=== PATIENT | female | born 1950 | race Caucasian/White ===

== ENCOUNTER 2025-08-10 11:15 | Outpatient (RCR) | payer MEDICARE, BC, SELFPAY | END 2025-09-25 13:11 | disposition home or self-care (01) | PROVIDERS: PCP Family Medicine; Visit Provider Family Medicine | DX: M25.511 Pain in right shoulder (principal); G89.29 Other chronic pain; M25.811 Other specified joint disorders, right shoulder; Z51.89 Encounter for other specified aftercare | CPT/HCPCS: 97110; 97112; 97161 ==